=== PATIENT | female | born 1995 | race Caucasian/White ===

== ENCOUNTER 2021-12-31 20:49 | Emergency (ER) | payer OTHER ==
[2021-12-31] MEDS ORDERED: KETOROLAC TROMETHAMINE 30 MG/1 ML VIAL IM ONE (20:58)
[2021-12-31] MEDS ORDERED: ALPRAZolam 1 MG TABLET PO PRN (20:58)
[2021-12-31] MEDS ORDERED: KETOROLAC TROMETHAMINE 30 MG/1 ML VIAL ONE (21:02)
[2021-12-31 21:07] VITALS: TEMP 98.9; BMI 26.6
[2021-12-31 21:13] VITALS: BP 130/93; PULSE 110
== END 2021-12-31 21:12 | disposition home or self-care (01) ==
LOC: FER 20:49
PROC: 3E0233Z Introduction of Anti-inflammatory into Muscle, Percutaneous Approach (ICD-10-PCS; principal; 2021-12-31)
DX: F41.9 Anxiety disorder, unspecified (principal); M54.41 Lumbago with sciatica, right side
CPT/HCPCS: 96372; 99284-25